=== PATIENT | male | born 1940 | race Caucasian/White ===

== ENCOUNTER 2022-03-26 07:43 | Outpatient (CLI) | payer OTHER, SELFPAY ==
[2022-03-26 08:26] LABS: Add Urine Microscopic? NO; Charge for UA Resulting for Rev
[2022-03-26 08:30] LABS: Bilirubin Urine Neg (Negative); Blood Urine Neg (Negative); Glucose Urine UA Norm (Normal); Ketones Urine Negative (Negative); Leukocyte Esterase Urine Negative (Negative); Nitrate Urine Negative (Negative); Protein Urine Neg (Negative); Specific Gravity, Urine 1.015 (1.005-1.030); Urine Appearance Clear (CLEAR); Urine Color Yellow (Yellow); Urobilinogen Urine Norm (Negative); pH Urine 6 (5-7)
[2022-03-26 08:46] LABS: Alanine Aminotransferase 66 U/L (0-41); Albumin Level 3.6 g/dL (3.5-5.2); Alkaline Phosphatase 217 U/L (40-130); Anion Gap 12.5 (5-19); Aspartate Amino Transferase 72 U/L (0-40); Blood Urea Nitrogen 15 mg/dL (8-23); Calcium 9.1 mg/dL (8.5-10.5); Carbon Dioxide 26 mmol/L (22-29); Chloride 95 mmol/L (98-107); Globulin 4.1 g/dL (1.3-4.6); Glucose 103 mg/dL (65-115); Osmolality Calculated 271 mOsm/kg (285-295); Potassium 3.5 mmol/L (3.5-5.1); Sodium 130 mmol/L (136-145); Total Bilirubin 0.5 mg/dL (0.15-1.2); Total Protein 7.7 g/dL (6.6-8.7)
== END 2022-03-26 07:44 | disposition home or self-care (01) ==
LOC: LAB 07:52
PROVIDERS: Visit Provider Chiropractor
DX: Z02.89 Encounter for other administrative examinations (principal)
CPT/HCPCS: 80053; 81003